=== PATIENT | female | born 1945 | race Caucasian/White ===

== ENCOUNTER 2017-01-27 16:39 | Observation (INO) ==
[2017-01-27 17:16] LABS: Bilirubin,Urine Negative (Negative); Blood,Urine Negative (Negative); Clarity,Urine Clear (Clear); Color,Urine Yellow (Yellow); Glucose,Urine (UA) Normal (Normal); Ketones,Urine Negative (Negative); Leukocyte Esterase,Urine Moderate (Negative); Nitrite,Urine Negative (Negative); PH,Urine 6.5 pH Units (5.0-8.0); Protein,Urine Negative (Neg-Trace); Specific Gravity,Urine 1.021 (1.010-1.025); Urobilinogen,Urine Normal (Normal)
[2017-01-27 17:18] LABS: Bacteria,Urine Few per hpf (None-Few); Hyaline Casts,Urine None Seen per lpf (None-Few); RBC,Urine 0-3 per hpf (0-3); Squamous Epithelial Cell,Urine Many per lpf (None-Few); WBC,Urine 30-50 per hpf (0-3)
[2017-01-27 17:34] LABS: Basophils # 0.1 K/mcL (0.0-0.2); Basophils % 0.7 %; Eosinophils # 0.1 K/mcL (0.0-0.6); Eosinophils % 1.3 %; Hematocrit 40.5 % (35.3-44.9); Hemoglobin 13.1 g/dL (11.5-15.4); Immature Granulocytes % 0.8 % (0-4); Lymphocytes # 1.5 K/mcL (0.6-4.6); Lymphocytes % 19.3 %; Mean Corpuscular HGB Conc 32.3 g/dL (31.6-35.5); Mean Corpuscular Hemoglobin 29.7 pg (28.0-33.3); Mean Corpuscular Volume 91.8 fL (83.0-100.0); Monocytes % 12.5 %; Platelet Count 273 K/mcL (140-400); Red Blood Count 4.41 M/mcL (3.82-4.97); Red Cell Distribution Width 12.8 % (11.5-14.5); Segmented Neutrophils % 65.4 %
--- NOTE | 2017-01-27 17:41 | Emergency Department Note ---
Disposition Clinical Impression: Chest pain Qualifiers: Ischemic chest pain type: stable angina pectoris Disposition: Admitted As Inpatient Condition: Fair Time of Disposition: 18:51 Chest Pain HPI - General Chief Complaint: ED Chest Pain Stated Complaint: Chest pressure,SEBASTIAN Time Seen by Provider: 01/27/17 17:24 Source: patient Mode of arrival: ambulatory Limitations: no limitations Vital Signs Reviewed: Yes Nursing Notes Reviewed: Yes - History of Present Illness HPI Narrative: Patient presents to the ED with the chief complaint of chest discomfort. Onset was yesterday, describes a heavy aching pressure in her retrosternal area , nonradiating. Significantly worse with exertion, which also causes exertional dyspnea. Chronic nausea from gastroparesis, no vomiting, fever, cough. Last heart catheter was about 5 years ago and had several small blockages. That did not require stent at that time. States she just does not feel well. States she also has anxiety and cannot tell if this is from her heart or from feeling anxious. Severity scale (1-10): 6 - Related Data Home Medications Medication Instructions Recorded Confirmed LORazepam [Ativan] 0.5 mg PO QPM 01/01/16 01/27/17 Losartan Potassium [Cozaar] 100 mg PO DAILY 01/01/16 01/27/17 NIFEdipine XL (24 HR) [Procardia 30 mg PO DAILY 01/01/16 01/27/17 XL] Venlafaxine XR (24 HR) [Effexor Xr] 150 mg PO DAILY 01/01/16 01/27/17 Acyclovir [Zovirax] 400 mg PO DAILY 01/27/17 01/27/17 Cholecalciferol (D-3) [Vitamin D] 2,000 unit PO DAILY 01/27/17 01/27/17 Lipase/Protease/Amylase [Creon Dr 2 each PO BID 01/27/17 01/27/17 24,000 Units Capsule] Metoprolol Succinate 200 mg PO DAILY 01/27/17 01/27/17 Pravastatin Sodium [Pravachol] 40 mg PO HS 01/27/17 01/27/17 Vitamin A 10,000 unit PO DAILY 01/27/17 01/27/17 Allergies Allergy/AdvReac Type Severity Reaction Status Date / Time Oxycodone [From Percocet] AdvReac See Verified 01/27/17 16:54 Comments sulfamethoxazole AdvReac See Verified 01/27/17 16:54 [From Bactrim] Comments trimethoprim [From Bactrim] AdvReac See Verified 01/27/17 16:54 Comments All systems ED: reviewed and negative except as stated. Constitutional: Denies: fever Eyes: Denies: vision change Cardiovascular: Reports: chest pain, dyspnea on exertion. Denies: palpitations , edema, syncope Respiratory: Reports: dyspnea. Denies: cough, wheezes, hemoptysis Gastrointestinal: Reports: nausea. Denies: abdominal pain, vomiting Genitourinary: Denies: dysuria Musculoskeletal: Denies: back pain, neck pain Neurological: Denies: headache Chest Pain PMH - Past Medical History Medical history: Reports: coronary artery disease, other Psychiatric history: Reports: anxiety - Social History Smoking Status: Never smoker Alcohol use: Reports: none Drug use: Reports: none Physical Exam - General Limitations: no limitations General appearance: alert, in no apparent distress - Head Head exam: atraumatic, normocephalic, normal inspection - Eye Eye exam: Present: normal appearance, PERRL, EOMI - ENT ENT exam: normal exam, normal oropharynx, mucous membranes moist - Chest Chest inspection: Present: normal inspection, symmetric chest wall rise - Respiratory Respiratory exam: Present: normal lung sounds bilaterally - Cardiovascular Cardiovascular exam: Present: regular rate, normal rhythm, normal heart sounds - Abdominal Exam Abdominal exam: Present: soft, Non-Tender. Absent: tenderness, distention, guarding, rebound, rigidity - Extremities Exam Extremities exam: Present: normal inspection, full ROM. Absent: tenderness, pedal edema - Neurological Exam Neurological exam: Present: alert, oriented X3 - Psychiatric Psychiatric exam: Present: normal affect, normal mood - Skin Skin exam: Present: warm, dry, intact, normal color Course Course Narrative: Patient presenting with concerning chest pain symptoms. We will workup and admit Vital Signs Temperature 97.9 F 01/27/17 16:55 Pulse Rate 68 01/27/17 16:55 Respiratory Rate 20 01/27/17 16:55 Blood Pressure 143/85 01/27/17 16:55 O2 Sat by Pulse Oximetry 95 01/27/17 16:55 Temperature 97.9 F 01/27/17 16:55 Pulse Rate 66 01/27/17 18:27 Respiratory Rate 18 01/27/17 18:41 Blood Pressure 154/93 01/27/17 18:41 O2 Sat by Pulse Oximetry 96 01/27/17 18:27 Oxygen Delivery Oxygen Delivery Room Air Chest Pain - Lab Data Result diagrams: 01/27/17 17:25 01/27/17 17:25 Lab Results 01/27/17 01/27/17 01/27/17 Range/Units 16:52 17:25 17:25 WBC 7.7 (4.3-11.1) K/mcL RBC 4.41 (3.82-4.97) M/mcL Hgb 13.1 (11.5-15.4) g/dL Hct 40.5 (35.3-44.9) % MCV 91.8 (83.0-100.0) fL MCH 29.7 (28.0-33.3) pg MCHC 32.3 (31.6-35.5) g/dL RDW 12.8 (11.5-14.5) % Plt Count 273 (140-400) K/mcL MPV 10.0 (9.4-12.4) fL Immature Gran % 0.8 (0-4) % Seg Neutrophils % 65.4 % Lymphocytes % 19.3 % Monocytes % 12.5 % Eosinophils % 1.3 % Basophils % 0.7 % Neutrophils # 5.0 (1.6-8.9) K/mcL Lymphocytes # 1.5 (0.6-4.6) K/mcL Monocytes # 1.0 (0.0-1.3) K/mcL Eosinophils # 0.1 (0.0-0.6) K/mcL Basophils # 0.1 (0.0-0.2) K/mcL Sodium 139 (136-145) mEq/L Potassium 4.2 (3.5-4.5) mEq/L Chloride 105 (98-109) mEq/L Carbon Dioxide 21 (19-29) mEq/L BUN 20 (7-20) mg/dL Creatinine 0.82 (0.57-1.11) mg/dL Est GFR ( Amer) > 60 (> 60) Est GFR (Non-Af Amer) > 60 (> 60) BUN/Creatinine Ratio 24 (6-26) Glucose 97 (70-99) mg/dL Calculated Osmolality 291 (280-300) Calcium 9.4 (8.6-10.8) mg/dL Total Bilirubin 0.6 (0.2-1.2) mg/dL AST 24 (5-34) Units/L ALT 22 (0-55) Units/L Alkaline Phosphatase 121 (38-126) Units/L Troponin I (0-0.03) ng/mL Serum Total Protein 8.0 (6.0-8.3) g/dL Albumin 3.9 (3.5-5.0) g/dL Globulin 4.1 H (2.4-3.5) g/dL Albumin/Globulin Ratio 1.0 L (1.1-2.2) Amylase 56 (25-125) Units/L Lipase < 10 (8-78) Units/L Urine Color Yellow (Yellow) Urine Clarity Clear (Clear) Urine pH 6.5 (5.0-8.0) pH Units Ur Specific [place] 1.021 (1.010-1.025) Urine Protein Negative (Neg-Trace) mg/dL Urine Glucose (UA) Normal (Normal) mg/dL Urine Ketones Negative (Negative) mg/dL Urine Blood Negative (Negative) Urine Nitrite Negative (Negative) Urine Bilirubin Negative (Negative) Urine Urobilinogen Normal (Normal) mg/dL Ur Leukocyte Esterase Moderate H (Negative) Urine Microscopic RBC 0-3 (0-3) per hpf Urine Microscopic WBC 30-50 H (0-3) per hpf Ur Squamous Epith Cells Many H (None-Few) per lpf Urine Bacteria Few (None-Few) per hpf Hyaline Casts None Seen (None-Few) per lpf Ur Culture Indicated? YES A (NO) 01/27/17 Range/Units 17:25 WBC (4.3-11.1) K/mcL RBC (3.82-4.97) M/mcL Hgb (11.5-15.4) g/dL Hct (35.3-44.9) % MCV (83.0-100.0) fL MCH (28.0-33.3) pg MCHC (31.6-35.5) g/dL RDW (11.5-14.5) % Plt Count (140-400) K/mcL MPV (9.4-12.4) fL Immature Gran % (0-4) % Seg Neutrophils % % Lymphocytes % % Monocytes % % Eosinophils % % Basophils % % Neutrophils # (1.6-8.9) K/mcL Lymphocytes # (0.6-4.6) K/mcL Monocytes # (0.0-1.3) K/mcL Eosinophils # (0.0-0.6) K/mcL Basophils # (0.0-0.2) K/mcL Sodium (136-145) mEq/L Potassium (3.5-4.5) mEq/L Chloride (98-109) mEq/L Carbon Dioxide (19-29) mEq/L BUN (7-20) mg/dL Creatinine (0.57-1.11) mg/dL Est GFR ( Amer) (> 60) Est GFR (Non-Af Amer) (> 60) BUN/Creatinine Ratio (6-26) Glucose (70-99) mg/dL Calculated Osmolality (280-300) Calcium (8.6-10.8) mg/dL Total Bilirubin (0.2-1.2) mg/dL AST (5-34) Units/L ALT (0-55) Units/L Alkaline Phosphatase (38-126) Units/L Troponin I 0.00 (0-0.03) ng/mL Serum Total Protein (6.0-8.3) g/dL Albumin (3.5-5.0) g/dL Globulin (2.4-3.5) g/dL Albumin/Globulin Ratio (1.1-2.2) Amylase (25-125) Units/L Lipase (8-78) Units/L Urine Color (Yellow) Urine Clarity (Clear) Urine pH (5.0-8.0) pH Units Ur Specific [place] (1.010-1.025) Urine Protein (Neg-Trace) mg/dL Urine Glucose (UA) (Normal) mg/dL Urine Ketones (Negative) mg/dL Urine Blood (Negative) Urine Nitrite (Negative) Urine Bilirubin (Negative) Urine Urobilinogen (Normal) mg/dL Ur Leukocyte Esterase (Negative) Urine Microscopic RBC (0-3) per hpf Urine Microscopic WBC (0-3) per hpf Ur Squamous Epith Cells (None-Few) per lpf Urine Bacteria (None-Few) per hpf Hyaline Casts (None-Few) per lpf Ur Culture Indicated? (NO) Heart Score - Score History: Highly Suspicious EKG: Non Specific repolarisation Disturbance Age: Greater than 65 Risk Factors: Equal/Greater than 3 risk factor or history of atherosclerotic disease Troponin: Less than normal limit HEART Score Total: 7
--- NOTE | 2017-01-27 17:41 | Emergency Department Note ---
START Narrative - START START: I examined this patient and my medical decision-making was reviewed with the emergency medicine resident. I agree with the documented findings, disposition and treatment plan as described except to the extent set forth below. Patient seen with emergency medicine resident Dr. Mika Crow, Please see a copy of his note for details of the H&P, ED evaluation, management and disposition. I have independently evaluated the patient and confirmed appropriate portions of the history and physical exam. Briefly: 71-year-old female who comes in presents with chest pain and pressure. History of prior small blockages understandable. EKG shows no acute ischemic changes. A sugar aspirin troponin chest x-ray and admission. Providing 30 minutes of critical care services to this patient. Admission disposition pending.
[2017-01-27 17:50] LABS: Alanine Aminotransferase 22 Units/L (0-55); Albumin 3.9 g/dL (3.5-5.0); Alkaline Phosphatase 121 Units/L (38-126); Amylase 56 Units/L (25-125); Aspartate Amino Transferase 24 Units/L (5-34); BUN/Creatinine Ratio 24 (6-26); Bilirubin,Total 0.6 mg/dL (0.2-1.2); Blood Urea Nitrogen 20 mg/dL (7-20); Calcium 9.4 mg/dL (8.6-10.8); Carbon Dioxide 21 mEq/L (19-29); Chloride 105 mEq/L (98-109); Globulin 4.1 g/dL (2.4-3.5); Glucose 97 mg/dL (70-99); Osmolality,Calculated 291 (280-300); Potassium 4.2 mEq/L (3.5-4.5); Sodium 139 mEq/L (136-145); eGFR For African Americans > 60 (> 60); eGFR For Non-African Americans > 60 (> 60)
[2017-01-27 17:51] LABS: Lipase < 10 Units/L (8-78)
[2017-01-27] MEDS ORDERED: Aspirin 325 MG TABLET PO ONE (18:29)
[2017-01-27] MEDS ORDERED: Naloxone 0.4 MG/ML INJ IVP PRN (20:06)
[2017-01-27] MEDS ORDERED: Acetaminophen 325 MG TABLET PO PRN (20:06)
[2017-01-27] MEDS ORDERED: Ondansetron 4 MG/2 ML VIAL IVP PRN (20:06)
[2017-01-27] MEDS ORDERED: Nitroglycerin 0.4 MG TAB.SUBL SL PRN (20:16)
--- NOTE | 2017-01-27 20:53 | Internal Med History&Physical ---
Date of Encounter: 01/27/17 Time of Encounter: 19:00 Assessment and Plan (1) Chest pain Current visit: Yes Status: Acute Patient presents with chest pressure that is transient and increases with exertion. Pain reported as centralized in chest w/o radiation. Patient reports has never happened before. Previously had two heart caths with last one 5 years ago. No stent placements. Initial troponin 0.00. Will trend x2. Continuous cardiac telemetry. Echocardiogram ordered. NPO at midnight for scheduled nuclear stress test tomorrow. Consider cardiology consult based on echo and stress results. Nitroglycerin PRN. Continue aspirin, Cozaar, metoprolol, Procardia, and pravastatin. Cardiac diet. Patient to be monitored closely. Qualifiers: Ischemic chest pain type: stable angina pectoris Qualified Code(s): I20.8 - Other forms of angina pectoris (2) SOB (shortness of breath) on exertion Current visit: Yes Status: Acute Patient reports acute SOB w/wo exertion accompanying chest pain. Supplemental O2 with titration and SpO2 monitoring. DuoNebs Q6 scheduled. Falls/safety precautions. (3) Diverticulosis Current visit: Yes Status: Chronic Patient reports hx of diverticulosis. Patient educated on foods to avoid in order to avoid exacerbations. Nutrition consult ordered. Qualifiers: Diverticulosis site: unspecified location Diverticulosis bleeding: diverticulosis without bleeding Qualified Code(s): K57.90 - Diverticulosis of intestine, part unspecified, without perforation or abscess without bleeding (4) HTN (hypertension) Current visit: Yes Status: Chronic Hx of chronic HTN. Monitor patient's VS and continue Cozaar, metoprolol, and Procardia. Qualifiers: Hypertension type: essential hypertension Qualified Code(s): I10 - Essential (primary) hypertension (5) HLD (hyperlipidemia) Current visit: Yes Status: Chronic Hx of chronic HLD. Lipid panel ordered in a.m. labs. Continue pravastatin. 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 Continue MRI of head/brain every other year. (7) Gastroparesis Current visit: Yes Status: Chronic Hx of chronic gastroparesis and transient abdominal discomfort and nausea. IVP Zofran Q6 PRN and IVP Protonix 40 mg daily. Monitor I&O. (8) CAD (coronary artery disease) Current visit: Yes Status: Chronic Hx of CAD and two heart catheterizations with last one 5 years ago with no stent placement. Patient placed on continuous cardiac telemetry. We will continue aspirin therapy, Cozaar, metoprolol, Procardia, and pravastatin. Lipid panel ordered in a.m. labs. Qualifiers: Coronary Disease-Associated Artery/Lesion type: unspecified vessel or lesion type [place] vs. transplanted heart: [place] heart Associated angina: angina presence unspecified Qualified Code(s): I25.10 - Atherosclerotic heart disease of [place] coronary artery without angina pectoris (9) DVT prophylaxis Current visit: Yes Status: Acute Heparin 5,000 units SQ Q8 ordered for DVT prophylaxis. Internal Medicine - H&P: HPI Chief complaint: Chest pressure Admitted From: Emergency Dept Plans for Post Hospital Care: Home History of present illness: Mrs. Saldana is a 71 year old female with medical history of CAD, arthritis, diverticulosis, HTN, HLD, diabetes, gastroparesis, IBS, and 2 brain tumors presents from the ED with chief complaint of chest pressure centralized in her chest that began yesterday morning and is transient. Patient reports never happened before and states she also becomes short of breath with exertion. Mrs. Saldana states she had 2 previous heart catheterizations with no stent placement with the most recent being 5 years ago. Patient denies radiation to neck shoulders or extremities. She reports nausea from chronic gastroparesis but denies recent illness, fever, chills, vomiting, cough, abdominal pain, palpitations, unusual bleeding, changes in vision, headache, lightheadedness, dizziness, presyncope, or syncope. EKG today shows sinus rhythm and normal ECG. Single view CXR today shows no evidence of acute cardiopulmonary disease. On admission, patient's vital signs include temperature 97.9 F, heart rate is 60 bpm, respiratory rate of 20, BP of 143/85, and SPO2 of 95% on room air. Abnormal lab values include globulin of 4.1 and albumin/globulin ratio 1.0. Patient's initial UA indicative for culture. Patient reports symptoms of urinary urgency and frequency with burning. Initial troponin 0.00. Upon assessment, patient is alert and oriented 3 and states she is not experiencing any chest pain or discomfort at this time. HR is RRR lungs are clear bilaterally on auscultation. Patient is hemodynamically stable reports no acute distress. Information taken from patient, family, chart review, and previous medical records. Mrs. Saldana is at high risk for further morbidity and cardiac event based on previous history, current symptoms, and risk factors and placed as observation status. Time spent with patient and family greater than 40 minutes. Past Med Surg Social Fam HX - Past Medical History Source: patient, old records reviewed, obtained from family Medical history: arthritis, coronary artery disease, hyperlipidemia, hypertension, other (Diverticulosis, gastroparesis, IBS, 2 brain tumors (1 calcified in 4th ventricle and 1 in sagittal sinus that is slow-growing)) Psychiatric history: anxiety - Social History Smoking Status: Never smoker Smokeless Tobacco Status: No Alcohol use: none Drug use: none Current living situation: Home, With Family Activity Level: Independent ambulation Recent Out of Country Travel Within the Last 8 Weeks: No Exposure or Possible Exposure to Illness During Travel: No - Family History Father Adopted: Yes (raised by grandparents) Race: Family Member Ethnicity: Non- Living Status: Age at : 73 Cause of : DM complications Hx Family Cardiac Disorders: Yes (HTN) Hx Family Endocrine Disorder: Yes (DM) Mother Race: Family Member Ethnicity: Non- Living Status: Age at : 46 Cause of : Shot Brother Race: Family Member Ethnicity: Non- Living Status: Age at : 52 Cause of : Stomach cancer Hx Family Cancer: Yes (Stomach) Sister Race: Family Member Ethnicity: Non- Living Status: Age at : 45 Cause of : DM complications Hx Family Endocrine Disorder: Yes (DM) Internal Medicine - H&P: Meds LORazepam [Ativan] 0.5 mg PO QPM 01/01/16 [History] Losartan Potassium [Cozaar] 100 mg PO DAILY 01/01/16 [History] NIFEdipine XL (24 HR) [Procardia XL] 30 mg PO DAILY 01/01/16 [History] Venlafaxine XR (24 HR) [Effexor Xr] 150 mg PO DAILY 01/01/16 [History] Acyclovir [Zovirax] 400 mg PO DAILY 01/27/17 [History] Cholecalciferol (D-3) [Vitamin D] 2,000 unit PO DAILY 01/27/17 [History] Lipase/Protease/Amylase [Creon Dr 24,000 Units Capsule] 2 each PO BID 01/27/17 [ History] Metoprolol Succinate 200 mg PO DAILY 01/27/17 [History] Pravastatin Sodium [Pravachol] 40 mg PO HS 01/27/17 [History] Vitamin A 10,000 unit PO DAILY 01/27/17 [History] 3 Allergy/AdvReac Type Severity Reaction Status Date / Time Oxycodone [From Percocet] AdvReac See Verified 01/27/17 16:54 Comments sulfamethoxazole AdvReac See Verified 01/27/17 16:54 [From Bactrim] Comments trimethoprim [From Bactrim] AdvReac See Verified 01/27/17 16:54 Comments All Systems PM: A 10-system review of systems was performed and is negative for pertinent findings except as documented above in the HPI. - Constitutional Constitutional: no chills, no fever(s), no night sweats - EENT Eyes: no change in vision, no discharge, no pain, no photophobia Ears: no ear discharge, no ear pain, no tinnitus Nose, mouth and throat: no dysphagia, no nasal discharge, no neck pain, no sore throat - Breasts Breasts: as per HPI - Cardiovascular Cardiovascular ROS IM: as per HPI, chest pain, dyspnea, dyspnea on exertion - Respiratory Respiratory: as per HPI, dyspnea, dyspnea on exertion - Gastrointestinal Gastrointestinal: as per HPI, nausea (From gastroparesis), no abdominal pain, no diarrhea, no hematemesis, no hematochezia, no melena, no vomiting - Genitourinary Genitourinary: as per HPI, urinary frequency, urinary urgency, other (Urinary burning) Menstruation: as per HPI - Musculoskeletal Musculoskeletal ROS IM: no numbness, no tingling - Integumentary Integumentary IM: no rash, no unusual bruising - Neurological Neurological ROS: no confusion, no convulsions, no focal weakness, no numbness, no tingling, no tremor(s) - Psychiatric Psychiatric: as per HPI - Endocrine Endocrine IM: as per HPI - Hematologic/Lymphatic Hematologic/Lymphatic: no easy bruising - Allergic/Immunologic Allergic/Immunologic: as per HPI - Constitutional Vitals: Temp Pulse Resp BP Pulse Ox 97.9 F 66 18 154/93 96 01/27/17 16:55 01/27/17 18:27 01/27/17 18:41 01/27/17 18:41 01/27/17 18:27 General appearance: Present: cooperative, A&O X 3, pleasant, no acute distress, obese, answers questions appropriately - Head Head exam: Present: atraumatic, normocephalic - Eye Eye exam: Present: PERRL, conjuntiva pink, sclera anicteric Pupils: Present: PERRL - ENT ENT exam: Present: normal exam, normal external ear exam - Neck Neck exam general surgery: Present: normal inspection, supple, trachea midline. Absent: lymphadenopathy - Respiratory Respiratory exam: Present: CTAB. Absent: accessory muscle use, rales, rhonchi, wheezes - Cardiovascular Cardiovascular exam: Present: RRR, +S1, +S2. Absent: diastolic murmur, gallop, rubs, systolic murmur - GI/Abdominal GI/Abdominal exam: Present: normal bowel sounds, soft, no peritoneal signs. Absent: distended, tenderness - Rectal Rectal exam: Present: deferred - Additional comments: exam deferred. - Extremities Exam Extremities exam: Present: warm, radial pulses palpable and symmetrical. Absent : calf tenderness, cyanotic, pedal edema - Back Exam Back exam: Present: normal inspection - Neurological Exam Neurological exam: Present: CN II-XII intact, oriented X3, no focal deficits. Absent: pronater drift, facial droop, speech deficit - Psychiatric Psychiatric exam: Present: normal affect, normal mood - Skin Skin exam: Present: dry, intact Internal Med - H&P Results - Labs CBC & Chem 7: 01/27/17 17:25 01/27/17 17:25 - EKG Data EKG shows normal: sinus rhythm Rate: normal - EKG Data Prior EKG available for review: no Interpretation IM: normal EKG - Diagnostic Studies Chest x-ray Additional comments: Impressions Chest X-Ray 01/27/17 17:01 IMPRESSION: No evidence of acute cardiopulmonary disease. D/ / Job Lemus MD / Job Lemus MD Interpreting Provider: Job Lemus MD
[2017-01-27] MEDS ORDERED: *HR* LORazepam 0.5 MG TABLET ONE (21:07)
[2017-01-27] MEDS: Pantoprazole 40 MG VIAL IVP SCH (21:19)
[2017-01-27] MEDS: *HR* Heparin 5,000 UNIT/ML VIAL SQ SCH (21:19)
--- NOTE | 2017-01-27 22:15 | Event Note ---
Date of Encounter: 01/27/17 Time of Encounter: 22:13 Patient and examined with nurse practitioner. Agree with assessment and plan. Coronary angiography 5 years ago showed no occlusive disease. Initial troponin normal EKG shows no TS-segment shifts. Will check serial troponin. Observation admission
[2017-01-27] MEDS: Ipratropium/Albuterol Neb 3 ML IH SCH (23:01)
[2017-01-28] MEDS: Ipratropium/Albuterol Neb 3 ML IH SCH ×3 (03:01→15:23)
[2017-01-28 05:20] LABS: Basophils % 0.5 %; Eosinophils # 0.1 K/mcL (0.0-0.6); Hemoglobin 12.2 g/dL (11.5-15.4); Immature Granulocytes % 0.8 % (0-4); Lymphocytes % 17.3 %; Mean Corpuscular HGB Conc 32.1 g/dL (31.6-35.5); Mean Corpuscular Hemoglobin 29.6 pg (28.0-33.3); Mean Corpuscular Volume 92.2 fL (83.0-100.0); Mean Platelet Volume 10.1 fL (9.4-12.4); Monocytes # 0.7 K/mcL (0.0-1.3); Monocytes % 11.4 %; Platelet Count 223 K/mcL (140-400); Red Blood Count 4.12 M/mcL (3.82-4.97); Red Cell Distribution Width 12.9 % (11.5-14.5)
[2017-01-28 05:25] LABS: Prothrombin Time 10.7 Seconds (9.4-12.1)
[2017-01-28 05:32] LABS: Hemoglobin A1C 5.5 %
[2017-01-28 05:36] LABS: Alanine Aminotransferase 21 Units/L (0-55); Albumin 3.2 g/dL (3.5-5.0); Albumin/Globulin Ratio 0.8 (1.1-2.2); Alkaline Phosphatase 108 Units/L (38-126); Aspartate Amino Transferase 21 Units/L (5-34); BUN/Creatinine Ratio 21 (6-26); Bilirubin,Total 0.5 mg/dL (0.2-1.2); Blood Urea Nitrogen 18 mg/dL (7-20); Calcium 8.9 mg/dL (8.6-10.8); Carbon Dioxide 25 mEq/L (19-29); Chloride 106 mEq/L (98-109); Cholesterol 207 mg/dL (< 200); Globulin 3.8 g/dL (2.4-3.5); Glucose 95 mg/dL (70-99); HDL Cholesterol 41 mg/dL (40-59); LDL Cholesterol,Calculated 128 mg/dL (0-99); Magnesium 2.2 mg/dL (1.6-2.6); Osmolality,Calculated 294 (280-300); Potassium 4.1 mEq/L (3.5-4.5); Sodium 141 mEq/L (136-145); Triglycerides 192 mg/dL (< 150); eGFR For African Americans > 60 (> 60); eGFR For Non-African Americans > 60 (> 60)
[2017-01-28] MEDS: *HR* Heparin 5,000 UNIT/ML VIAL SQ SCH ×2 (06:02→15:17)
[2017-01-28] MEDS ORDERED: Regadenoson 0.4 MG/5 ML SYRINGE IVP ONE (06:20)
[2017-01-28] MEDS ORDERED: NIFEdipine XL (24 HR) 30 MG TAB.ER.24 PO SCH (09:00)
[2017-01-28] MEDS ORDERED: Cholecalciferol (D-3) 1,000 UNIT TABLET PO SCH (09:00)
[2017-01-28] MEDS ORDERED: Venlafaxine XR (24 HR) 150 MG CAP.ER.24H PO SCH (09:00)
[2017-01-28] MEDS ORDERED: (Vitamin A [Vitamin A] 10,000 UNIT) PO SCH (09:00)
[2017-01-28] MEDS ORDERED: Metoprolol XL (24 HR) Succ 50 MG TAB.ER.24H PO SCH (09:00)
[2017-01-28] MEDS ORDERED: Aspirin Enteric Coated 81 MG Tablet PO SCH (09:00)
[2017-01-28] MEDS ORDERED: Acyclovir 200 MG CAPSULE PO SCH (09:00)
[2017-01-28] MEDS: Pantoprazole 40 MG VIAL IVP SCH (10:39)
--- NOTE | 2017-01-28 11:20 | Nuclear Medicine Stress Report ---
Regadenoson Nuclear Stress Name: Yahaira Saldana Date of Study: 01/28/2017 Date: 1945 Ht: 64.0 in Medical Record#: [id number] Age: 71 Wt: 201.0 lb Gender: Female Order #: [id number] Location: [facility] Room: [facility] Supervising Provider: Crescencio Patricia CNP Reading Physician: Dann Conway DO, NIKKI HILTON FASNC Ordering Physician: Lara White CNP Stress Technologist: Octavio Conner CRT Payroll Officer: Chris Chowdhury Indications: Chest Pressure, Shortness of breath Impression: Pharmacologic stress ECG is negative for ischemia at level of heart rate achieved. Frequent PVCs noted during stress. Gated EF = 73%. Small sized, moderate intensity, reversible apical lateral defect possibly due to ischemia. Low risk positive stress test. Dr. Nava notified via [employer]. History: Hypertension Stress Test Summary: Stress Test Type: Pharmacologic Regadenoson 0.4mg/5ml given IV Baseline Information: Initial Heart Rate: 81 Blood Pressure: 152/90 Stress Information: Test Terminated Due to (primary): As per protocol Maximum Blood Pressure: 138/80 Maximum Heart Rate: 120 Percent Maximum Heart Rate Achieved: 81 Double Product: [id number] METS Reached: 1 Symptoms: Chest pressure Nuclear Summary: SPECT myocardial perfusion imaging using Tc99m Sestamibi given intravenously was performed at rest and following cardiac stress testing. The resting images were obtained following initial dose of 11.1 mCi. Following stress an additional dose of 33.7 mCi was given at peak exercise or 30 seconds post regadenoson infusion. Medication Given: Time Medication Dose Units Route Findings: Stress Note * Resting ECG demonstrated normal sinus rhythm. * Frequent PVCs noted prior to exam beginning. * Pharmacologic stress ECG is negative for ischemia at level of heart rate achieved. * Frequent PVCs noted during stress. * chest discomfort reported prior to, during, and after the study. Hemodynamic responses * Normal hemodynamic responses to pharmacologic stress. Study Quality * Study quality is average. Gated EF % * Gated EF = 73%. Left Ventricle * The left ventricle is not dilated. NORMALS * Normal wall motion. * Normal Segmental Perfusion in rest. Apical Perfusion Stress * The apical lateral segment shows a moderate reduction in perfusion. TID * No evidence of transient ischemic dilatation. TID ratio * TID ratio = 1.14. Lung Uptake * There is no evidence of increase lung uptake. Updated by Dann Conway DO, FACDavid, NIKKI, LUPILLO on 01/28/2017 11:13:17 AM electronically signed on 01/28/2017 11:14:06 AM with status of Final
--- NOTE | 2017-01-28 14:00 | Internal Med Progress Note ---
Date of Encounter: 01/28/17 Time of Encounter: 11:00 - Assessment and plan (1) Chest pain Status: Acute Assessment and plan: Serial troponins negative x3. Chest pain resolved, EKG was unremarkable. CXR with no s/s of heart failure. Cardiac and lung exam were normal. She is high risk based on cardiac history. She has had a LHC 5 years ago, which did not require stent placement. A nuclear stress test done today shows low risk positive stress test (small size, moderate intensity, reversible apical lateral defect possibly due to ischemia). Based on this result, we will consult cardiology for further recommendations. Qualifiers: Ischemic chest pain type: stable angina pectoris Qualified Code(s): I20.8 - Other forms of angina pectoris (2) SOB (shortness of breath) on exertion Status: Acute Assessment and plan: Will need to rule out cardiac causes, management as per problem #1. (3) Abnormal nuclear stress test Status: Chronic Assessment and plan: Follow-up cardiology consult. - Subjective Interval history: Has had no occurance of chest pain since arriving to floor. Denies SOB, n/v, numbness/tingling. - Constitutional Vitals: Temp Pulse Resp BP Pulse Ox 97.5 F L 80 18 108/76 99 01/28/17 11:06 01/28/17 11:06 01/28/17 11:06 01/28/17 11:06 01/28/17 11:06 General appearance: Present: cooperative, A&O X 3, pleasant, no acute distress, obese, answers questions appropriately - Respiratory Respiratory exam: Present: CTAB. Absent: accessory muscle use, rales, rhonchi, wheezes - Cardiovascular Cardiovascular exam: Present: RRR, +S1, +S2. Absent: diastolic murmur, gallop, rubs, systolic murmur - Extremities Exam Extremities exam: Present: warm, radial pulses palpable and symmetrical. Absent : calf tenderness, cyanotic, pedal edema Internal Medicine: Result - Labs CBC & Chem 7: 01/28/17 05:10 01/28/17 05:10 Labs: Short CBC 01/28/17 Range/Units 05:10 WBC 5.9 (4.3-11.1) K/mcL Hgb 12.2 (11.5-15.4) g/dL Hct 38.0 (35.3-44.9) % Plt Count 223 (140-400) K/mcL Neutrophils # 4.0 (1.6-8.9) K/mcL BMP 01/28/17 05:10 Sodium 141 Potassium 4.1 Chloride 106 Carbon Dioxide 25 BUN 18 Creatinine 0.84 Glucose 95 Calcium 8.9 Cardiac Enzymes 01/27/17 01/28/17 Range/Units 23:48 05:10 Troponin I 0.00 0.01 (0-0.03) ng/mL Liver Function 01/28/17 Range/Units 05:10 Total Bilirubin 0.5 (0.2-1.2) mg/dL AST 21 (5-34) Units/L ALT 21 (0-55) Units/L Alkaline Phosphatase 108 (38-126) Units/L Albumin 3.2 L (3.5-5.0) g/dL - ABG Interpretation ABG results: PT/INR, D-dimer PT 10.7 Seconds (9.4-12.1) 01/28/17 05:10 - Impressions Impressions Echocardiogram 01/28/17 07:00 Impressions: LVEF 60-65%. Normal LV chamber size, wall thickness, and function. Mild concentric left ventricular hypertrophy. Mild left ventricular diastolic dysfunction. Normal right ventricular structure and function. Mild aortic sclerosis. Mean gradient 10 mmHg. Unable to estimate RVSP due to lack of TR jet. Left Ventricular Wall Motion: Rest Echo Findings All wall segments showed normal motion. Findings: Study Quality * Technically adequate exam. ECG Findings * Normal sinus rhythm. Left Ventricle * LVEF 60-65%. * Normal LV chamber size, wall thickness, and function. * Mild left ventricular diastolic dysfunction. Right Ventricle * Normal right ventricular structure and function. Left Atrium * Mildly dilated left atrium. Right Atrium * Normal right atrial size. Interatrial Septum * No evidence of PFO by color Doppler. Aortic Valve * Trileaflet aortic valve. * Mildly sclerotic aortic valve leaflets. * No aortic regurgitation. * Mild aortic sclerosis. Mean gradient 10 mmHg. Mitral Valve * Normal mitral valve structure and function. * No mitral regurgitation. * No mitral stenosis. Tricuspid Valve * Normal tricuspid valve structure and function. * No tricuspid regurgitation. * Unable to estimate RVSP due to lack of TR jet. Pulmonic Valve * Normal pulmonic valve structure and function. * No pulmonic regurgitation. Aorta * Normally sized aortic root. Pericardium * The pericardium appears normal. IVC * Normal IVC dimensions and inspiratory collapse. Pulmonary Artery * Normal visualized portions of the main pulmonary artery. Consult Discharge Plan - Plan Instructions: Chest Pain (DC), Chronic Hypertension (DC) Additional Instructions: Follow-up with your computer networking instructor adjunct in one month. Referrals: Swetha Baeza CNP [Advanced Practice Nurse] - 02/08/17 11:00 am
--- NOTE | 2017-01-28 15:21 | Cardiology Consult Note ---
<Cerscencio Patricia - Last Filed: 01/28/17 15:17> Date of Encounter: 01/28/17 Time of Encounter: 15:00 Assessment and Plan (1) Chest pain Status: Acute Per Cardiology: Atypical CP symptoms. Occur with palpitations-- had PVCs on stress test. Additionally, had CP upon palpation on exam. Trops negative x 3. Qualifiers: Ischemic chest pain type: stable angina pectoris Qualified Code(s): I20.8 - Other forms of angina pectoris (2) Abnormal nuclear stress test Status: Chronic Per Cardiology: Non-exercise nuclear stress test showed small sized, moderate intensity, reversible apical lateral defect possibly due to ischemia-- deemed low risk positive stress test per reading draft roller picker. Of note, has hx of abnormal stress tests-- had abnormal nuclear stress test at [facility] 2006 and [facility] with normal angiogram. Had abnormal ECG on stress test at [facility] in 01/2011 (nuclear negative then) with [facility] showing nonobstructive CAD. I discussion with patient and regarding continuing to monitor and observe him proceed with exploring noncardiac causes versus further ischemic evaluation. At this time agreeable to monitor and follow up as outpatient. Patient discussed and reviewed with Dr. Patel. Cardiology will sign off, re-consult as needed, follow- up scheduled. Case discussed with primary team. (3) CAD (coronary artery disease) Status: Chronic Per Cardiology: Catheterization from [facility] 2006-- normal coronary angiogram. Underwent left heart catheterization January 2011 which showed nonobstructive CAD with mid left main 10%, proximal LAD 20%, proximal circumflex 20%, proximal RCA 30%. On asa, statin, BB, ARB. Qualifiers: Coronary Disease-Associated Artery/Lesion type: unspecified vessel or lesion type [place] vs. transplanted heart: [place] heart Associated angina: angina presence unspecified Qualified Code(s): I25.10 - Atherosclerotic heart disease of [place] coronary artery without angina pectoris Discussion w patient/family: The assessment and plan as outlined above was discussed with the patient and/or family members who expressed understanding and agreement. All questions were answered. Thank you for involving us in the care of your patient. Please call with any questions. History of Present Illness Consult date: 01/28/17 Requesting physician: Glen Rivas Consult reason: CP, + Stress test Chief complaint: CP History of present illness: Ms. 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 Cardiology consult for chest pain and abnormal stress test results. Patient seen today with at bedside. Indicates was seen by PCP and sent to the ER for concerns of her chest pain and shortness of breath.Reports were normal state of health up until the past few days. She reports concerns of midsternal chest pressure that lasts for a few seconds to a few minutes and gradually subsides. CP symptoms reproduced today upon exam on palpation. She reports symptoms occur with palpitations. She denies any radiation to her neck, jaw, left arm. She does report some mild worsening shortness of breath with exertion over the past few weeks. Reports overall fatigue about baseline she denies any recent infectious process. Denies any active bleeding or blood loss. Denies any dizziness, syncope, falls. Reports past history of palpitations. Past Med Surg Social Fam HX - Past Medical History Attestation: Yes The following information was validated with the patient. 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)) Psychiatric history: anxiety - Social History Smoking Status: Never smoker Smokeless Tobacco Status: No Alcohol use: none Drug use: none - Family History Father Adopted: Yes (raised by grandparents) Race: Family Member Ethnicity: Non- Living Status: Age at : 73 Cause of : DM complications Hx Family Cardiac Disorders: Yes (HTN) Hx Family Endocrine Disorder: Yes (DM) Mother Race: Family Member Ethnicity: Non- Living Status: Age at : 46 Cause of : Shot Brother Race: Family Member Ethnicity: Non- Living Status: Age at : 52 Cause of : Stomach cancer Hx Family Cancer: Yes (Stomach) Sister Race: Family Member Ethnicity: Non- Living Status: Age at : 45 Cause of : DM complications Hx Family Endocrine Disorder: Yes (DM) Medications and Allergies LORazepam [Ativan] 0.5 mg PO QPM 01/01/16 [History] Losartan Potassium [Cozaar] 100 mg PO DAILY 01/01/16 [History] NIFEdipine XL (24 HR) [Procardia XL] 30 mg PO DAILY 01/01/16 [History] Venlafaxine XR (24 HR) [Effexor Xr] 150 mg PO DAILY 01/01/16 [History] Acyclovir [Zovirax] 400 mg PO DAILY 01/27/17 [History] Cholecalciferol (D-3) [Vitamin D] 2,000 unit PO DAILY 01/27/17 [History] Lipase/Protease/Amylase [Creon Dr 24,000 Units Capsule] 2 each PO BID 01/27/17 [ History] Metoprolol Succinate 200 mg PO DAILY 01/27/17 [History] Pravastatin Sodium [Pravachol] 40 mg PO HS 01/27/17 [History] Vitamin A 10,000 unit PO DAILY 01/27/17 [History] 3 Allergy/AdvReac Type Severity Reaction Status Date / Time Oxycodone [From Percocet] AdvReac See Verified 01/27/17 16:54 Comments sulfamethoxazole AdvReac See Verified 01/27/17 16:54 [From Bactrim] Comments trimethoprim [From Bactrim] AdvReac See Verified 01/27/17 16:54 Comments All Systems Review: A 10-system review of systems was performed and is negative for pertinent findings except as documented above in the HPI. - Constitutional Constitutional: fatigue - Cardiovascular Cardiovascular: as per HPI, chest pain at rest, chest pain with exertion, dyspnea on exertion, palpitations Physical Examination Selected Entries 01/28/17 10:54 01/28/17 11:06 Temperature 97.5 F L Pulse Rate 80 Respiratory Rate 18 Blood Pressure 108/76 O2 Sat by Pulse Oximetry 99 Oxygen Delivery Method Room Air General: Conversant, No Apparent Distress HEENT: Atraumatic, Normocephaly, Mucus Membranes Moist Neck: No JVD, Normal carotid pulses Cardiac: Reg Rate and Rhythm, Normal S1 and S2, No Murmur Lungs: Normal Breath Sounds, No Wheeze, Rales, Rhonchi Neuro: Alert and responsive, No focal deficits noted Abdomen: Soft, Non-Tender Skin: No rashes noted on visualized skin Musculoskeletal: No Chest Wall Tenderness Extremities: No Clubbing, No Cyanosis, No Edema, Normal Pulses Results 01/28/17 05:10 01/28/17 05:10 Lab Results Laboratory Tests 01/27/17 01/27/17 01/28/17 17:25 23:48 05:10 INR 1.0 Magnesium AST ALT Troponin I 0.00 0.00 LDL Cholesterol, Calc 01/28/17 01/28/17 05:10 05:10 INR Magnesium 2.2 AST 21 ALT 21 Troponin I 0.01 LDL Cholesterol, Calc 128 H ITS Impressions Chest X-Ray 01/27/17 17:01 IMPRESSION: No evidence of acute cardiopulmonary disease. D/ / Job Lemus MD / Job Lemus MD Interpreting Provider: Job Lemus MD Echocardiogram 01/28/17 07:00 Impressions: LVEF 60-65%. Normal LV chamber size, wall thickness, and function. Mild concentric left ventricular hypertrophy. Mild left ventricular diastolic dysfunction. Normal right ventricular structure and function. Mild aortic sclerosis. Mean gradient 10 mmHg. Unable to estimate RVSP due to lack of TR jet. Left Ventricular Wall Motion: Rest Echo Findings All wall segments showed normal motion. Findings: Study Quality * Technically adequate exam. ECG Findings * Normal sinus rhythm. Left Ventricle * LVEF 60-65%. * Normal LV chamber size, wall thickness, and function. * Mild left ventricular diastolic dysfunction. Right Ventricle * Normal right ventricular structure and function. Left Atrium * Mildly dilated left atrium. Right Atrium * Normal right atrial size. Interatrial Septum * No evidence of PFO by color Doppler. Aortic Valve * Trileaflet aortic valve. * Mildly sclerotic aortic valve leaflets. * No aortic regurgitation. * Mild aortic sclerosis. Mean gradient 10 mmHg. Mitral Valve * Normal mitral valve structure and function. * No mitral regurgitation. * No mitral stenosis. Tricuspid Valve * Normal tricuspid valve structure and function. * No tricuspid regurgitation. * Unable to estimate RVSP due to lack of TR jet. Pulmonic Valve * Normal pulmonic valve structure and function. * No pulmonic regurgitation. Aorta * Normally sized aortic root. Pericardium * The pericardium appears normal. IVC * Normal IVC dimensions and inspiratory collapse. Pulmonary Artery * Normal visualized portions of the main pulmonary artery. Active Medications Acetaminophen (Tylenol) 650 mg PO Q6HR PRN PRN Reason: Mild Pain (1-3) Stop: 07/29/17 20:07 Acyclovir (Zovirax) 400 mg PO DAILY ROMELIA Stop: 07/30/17 09:01 Last Admin: 01/28/17 10:38 Dose: 400 mg Albuterol/Ipratropium (Duoneb) 3 ml IH [id number] ROMELIA Stop: 07/29/17 22:01 Last Admin: 01/28/17 15:23 Dose: Not Given Lipase/Protease/Amylase (Creon Dr 6,000 Units Capsule) 8 each PO BID ROMELIA Stop: 07/29/17 21:01 Last Admin: 01/28/17 10:39 Dose: 8 each Aspirin (Aspirin Ec) 81 mg PO DAILY ROMELIA Stop: 07/30/17 09:01 Last Admin: 01/28/17 10:37 Dose: 81 mg Atorvastatin Calcium (Lipitor) 10 mg PO HS ROMELIA Stop: 07/29/17 21:01 Last Admin: 01/27/17 21:18 Dose: 10 mg Heparin Sodium (Porcine) (Heparin) 5,000 unit SQ Q8HCO ROMELIA Stop: 07/29/17 22:01 Last Admin: 01/28/17 15:17 Dose: Not Given Ceftriaxone Sodium 1,000 mg/ (Dextrose) 100 mls @ 200 mls/hr IVPB Q24H ROMELIA Stop: 07/29/17 21:01 Last Admin: 01/27/17 21:14 Dose: 200 mls/hr Lorazepam (Ativan) 0.5 mg PO QPM ROMELIA Stop: 07/30/17 18:01 Last Admin: 01/27/17 21:18 Dose: 0.5 mg Losartan Potassium (Cozaar) 100 mg PO DAILY ROMELIA Stop: 07/30/17 09:01 Last Admin: 01/28/17 10:37 Dose: 100 mg Metoprolol Succinate (Toprol Xl) 200 mg PO DAILY ROMELIA Stop: 07/30/17 09:01 Last Admin: 01/28/17 10:37 Dose: 200 mg Naloxone HCl (Narcan) 0.4 mg IVP Q2MIN PRN PRN Reason: Opioid Reversal Stop: 07/29/17 20:07 Nifedipine (Procardia Xl) 30 mg PO DAILY ROMELIA PRN Reason: Protocol Stop: 07/30/17 09:01 Last Admin: 01/28/17 10:36 Dose: 30 mg Nitroglycerin (Nitroglycerin) 0.4 mg SL Q5MIN PRN PRN Reason: Chest Pain Stop: 07/29/17 20:17 Ondansetron HCl (Zofran) 4 mg IVP Q8HR PRN PRN Reason: Nausea And Vomiting Stop: 07/29/17 20:07 Pantoprazole Sodium (Protonix) 40 mg IVP DAILY ROMELIA Stop: 07/29/17 20:16 Last Admin: 01/28/17 10:39 Dose: 40 mg Pharmacy Profile Note (Patient Taking Own Medication) 0 each PO DAILY ROMELIA Stop: 07/30/17 09:01 Last Admin: 01/28/17 10:39 Dose: Not Given Venlafaxine HCl (Effexor Xr) 150 mg PO DAILY ROMELIA PRN Reason: Protocol Stop: 07/30/17 09:01 Last Admin: 01/28/17 10:38 Dose: 150 mg Vitamin D (Vitamin D) 1,000 unit PO DAILY ROMELIA Stop: 07/30/17 09:01 Last Admin: 01/28/17 10:38 Dose: 1,000 unit - Imaging and Cardiology Stress Test: report reviewed Echo: report reviewed Cardiac cath: report reviewed - EKG Interpretation EKG results cardiology: personally reviewed (SR), normal ECG, sinus rhythm, no diagnostic ischemia Consult Discharge Plan - Plan Instructions: Chest Pain (DC), Chronic Hypertension (DC) Additional Instructions: Follow-up with your draft roller picker in one month. Referrals: Swetha Baeza, DIELECTRIC TESTER [Advanced Practice Nurse] - 02/08/17 11:00 am <Lio Patel - Last Filed: 01/31/17 00:32> Date of Encounter: 01/28/17 Time of Encounter: 18:00 Assessment and Plan Discussion w patient/family: The assessment and plan as outlined above was discussed with the patient and/or family members who expressed understanding and agreement. All questions were answered. Thank you for involving us in the care of your patient. Please call with any questions. History of Present Illness History of present illness: Ms. Saldana is a 71 year old female All Systems Review: A 10-system review of systems was performed and is negative for pertinent findings except as documented above in the HPI. Results 01/28/17 05:10 01/28/17 05:10 - Attending Attestation Pt seen and examined, chart reviewed independently, essentially agree with findings as documented, my evaluation as follows: 1. Chest pain - associated with palpitations and with reproducible palpation of chest wall. Symptoms have resolved. Stress test is consistently abnormal without demonstrable CAD, with previous [facility] for similar findings in 2006 and 2010, no significant change in nuclear imaging. Low probability has progression of disease with same distribution ischemia demonstrated. Long conversation with pt and , recommend continued optimal medical tx with close follow up as outpatient. She has ruled out for myocardial necrosis by EKG and enzematic criteria.
[2017-01-28 15:45] VITALS: BP 136/88
--- NOTE | 2017-01-28 16:16 | Discharge Summary ---
Date of Encounter: 01/28/17 Time of Encounter: 16:13 - Discharge Diagnosis (1) Chest pain Priority: Primary Status: Acute Qualifiers: Chest pain type: unspecified Qualified Code(s): R07.9 - Chest pain, unspecified (2) SOB (shortness of breath) on exertion Priority: Secondary Status: Acute (3) CAD (coronary artery disease) Priority: Secondary Status: Chronic Qualifiers: Coronary Disease-Associated Artery/Lesion type: unspecified vessel or lesion type [place] vs. transplanted heart: [place] heart Associated angina: angina presence unspecified Qualified Code(s): I25.10 - Atherosclerotic heart disease of [place] coronary artery without angina pectoris - Discharge Medications Home Medications: LORazepam [Ativan] 0.5 mg PO QPM 01/01/16 [History] Losartan Potassium [Cozaar] 100 mg PO DAILY 01/01/16 [History] NIFEdipine XL (24 HR) [Procardia XL] 30 mg PO DAILY 01/01/16 [History] Venlafaxine XR (24 HR) [Effexor Xr] 150 mg PO DAILY 01/01/16 [History] Acyclovir [Zovirax] 400 mg PO DAILY 01/27/17 [History] Cholecalciferol (D-3) [Vitamin D] 2,000 unit PO DAILY 01/27/17 [History] Lipase/Protease/Amylase [Creon Dr 24,000 Units Capsule] 2 each PO BID 01/27/17 [ History] Metoprolol Succinate 200 mg PO DAILY 01/27/17 [History] Pravastatin Sodium [Pravachol] 40 mg PO HS 01/27/17 [History] Vitamin A 10,000 unit PO DAILY 01/27/17 [History] Allergies/Adverse Reactions: 3 Allergy/AdvReac Type Severity Reaction Status Date / Time Oxycodone [From Percocet] AdvReac See Verified 01/27/17 16:54 Comments sulfamethoxazole AdvReac See Verified 01/27/17 16:54 [From Bactrim] Comments trimethoprim [From Bactrim] AdvReac See Verified 01/27/17 16:54 Comments Procedures/tests Complete & Pending: Procedures Performed prior 72 hours Category Date Time Status NM kadie perf SPECT multi [NM] Routine Exams 01/27/17 20:37 Taken EV echocardiogram Routine Y 01/28/17 07:00 Completed SP pharm nuclear stress Routine Y 01/27/17 20:37 Completed Date of admission: 01/27/17 18:08 Primary care physician: Gavin Canada MD Consults: 01/27/17 21:28 Consult to Nutrition [CONS] Routine Comment: Educate regarding diet for diverticulosis Consulting Provider: NUTRITION Reason for Dietary Consult: Diet Education Discharging clinician: Glen Rivas - Patient Status Disposition: Home, Self-Care Condition: Good Functional capacity at discharge: independent ambulation Overall status at discharge: patient is back to baseline - Discharge Instructions Instructions: Chest Pain (DC), Chronic Hypertension (DC) Follow Up With: Swetha Baeza CNP [Advanced Practice Nurse] - 02/08/17 11:00 am Additional Instructions: Follow-up with your drink mixer in one month. - Diet and Activity Diet: low fat, low cholesterol Interval History: Mrs. Saldana is a 71 year old female with medical history of CAD, arthritis, diverticulosis, HTN, HLD, diabetes, gastroparesis, IBS, and 2 brain tumors presents from the ED with chief complaint of chest pressure centralized in her chest that began one day prior to presentation and is transient. Patient reports never happened before and states she also becomes short of breath with exertion. Mrs. Saldana states she had 2 previous heart catheterizations with no stent placement with the most recent being 5 years ago. Patient denies radiation to neck shoulders or extremities. She reports nausea from chronic gastroparesis but denies recent illness, fever, chills, vomiting, cough, abdominal pain, palpitations, unusual bleeding, changes in vision, headache, lightheadedness, dizziness, presyncope, or syncope. EKG shows sinus rhythm and normal ECG. Single view CXR today shows no evidence of acute cardiopulmonary disease. On admission, patient's vital signs include temperature 97.9 F, heart rate is 60 bpm, respiratory rate of 20, BP of 143/85, and SPO2 of 95% on room air. Abnormal lab values include globulin of 4.1 and albumin/globulin ratio 1.0. Patient's initial UA indicative for culture. Patient reports symptoms of urinary urgency and frequency with burning. Initial troponin 0.00. Upon assessment, patient is alert and oriented 3 and states she is not experiencing any chest pain or discomfort at this time. HR is RRR lungs are clear bilaterally on auscultation. Patient is hemodynamically stable reports no acute distress. Information taken from patient, family, chart review, and previous medical records. Mrs. Saldana is at high risk for further morbidity and cardiac event based on previous history, current symptoms, and risk factors and placed as observation status. Hospital course: Serial troponins negative x3. Chest pain resolved, EKG was unremarkable. CXR with no s/s of heart failure. Cardiac and lung exam were normal. She is high risk based on cardiac history. She has had a LHC 5 years ago, which did not require stent placement. A nuclear stress test done today shows low risk positive stress test (small size, moderate intensity, reversible apical lateral defect possibly due to ischemia). Based on this result, cardiology was consulted. After evaluation, patient agreed to follow-up with cardiology as outpatient. She was discharged home in stable condition. - Time Spent with Patient Total time spent providing and/or coordinating discharge services: - Constitutional Vitals: Temp Pulse Resp BP Pulse Ox 98.6 F 84 15 136/88 95 01/28/17 15:44 01/28/17 15:44 01/28/17 15:44 01/28/17 15:44 01/28/17 15:44 General appearance: Present: cooperative, A&O X 3, pleasant, no acute distress, obese, answers questions appropriately - Respiratory Respiratory exam: Present: CTAB. Absent: accessory muscle use, rales, rhonchi, wheezes - Cardiovascular Cardiovascular exam: Present: RRR, +S1, +S2. Absent: diastolic murmur, gallop, rubs, systolic murmur - Extremities Exam Extremities exam: Present: warm, radial pulses palpable and symmetrical. Absent : calf tenderness, cyanotic, pedal edema
[2017-01-28] MEDS ORDERED: *HR* LORazepam 0.5 MG TABLET PO SCH (18:00)
--- NOTE | 2017-01-28 18:08 | Electrocardiograph Report ---
[place] [id number] Test Date: 2017-01-27 Pat Name: Yahaira Saldana Department: 104 Room: 3B Gender: F Automobile Service Writer: CHUCK : 1945 Requested By: Ariel Jovel Order Number: [id number] Reading MD: Katie Galan Measurements Intervals Alicia Rate: 67 P: 65 NC: 167 QRS: 29 QRSD: 96 T: 49 QT: 383 QTc: 398 Interpretive Statements SINUS RHYTHM Electronically Signed On 01-28-2017 18:06:57 EDT by Katie Galan
== END 2017-01-28 16:50 | disposition home or self-care (01) ==
LOC: EMEROO 16:39 → 3BNU 16:39
PROVIDERS: ADMIT Nurse Practitioner Acute Care; ATTEND Registered Nurse